=== PATIENT | female | born 2005 | race Caucasian/White ===

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

== ENCOUNTER 2023-02-24 10:28 | Outpatient (REF) | payer OTHER, SELFPAY | END 2023-02-24 10:29 | disposition home or self-care (01) | LOC: LBN 10:28 | PROVIDERS: PCP Nurse Practitioner Family; Visit Provider Nurse Practitioner Family | DX: J02.9 Acute pharyngitis, unspecified (principal) | CPT/HCPCS: 87070 ==

== ENCOUNTER → 2023-05-20 00:32 | Outpatient (CLI) | payer OTHER, SELFPAY ==
--- NOTE | 2023-05-20 08:15 | DI.RAD_ITS ---
Exam(s) XR LUMBAR SPINE COMPLETE EXAM: XR LUMBAR SPINE COMPLETE CLINICAL HISTORY: low back pain,M54.50. TECHNIQUE: 2D digital imaging was performed. Five views. COMPARISON: No exams were available for comparison FINDINGS: BONES: No fracture or destructive lesion. Vertebral body heights are maintained. No facet hypertroph y identified. Partial sacralization of the left L5 transverse process. DISKS: Intervertebral disc spaces are maintained. ALIGNMENT: Lumbar spinal alignment is within normal limits. SOFT TISSUE: Normal. IMPRESSION: No acute abnormality. DATA REPOSITORY: RADIATION DOSE DELIVERED:
== END ==
PROVIDERS: PCP Nurse Practitioner Family; Visit Provider Nurse Practitioner Family
DX: M54.50 Low back pain, unspecified
CPT/HCPCS: 72110

== ENCOUNTER 2023-09-03 22:21 | Emergency (ER) | payer OTHER, SELFPAY ==
[2023-09-03 22:38] VITALS: BP 154/83; PULSE 77; RESP 18; TEMP 36.4; O2SAT 98
--- NOTE | 2023-09-03 23:27 | ED.GENADUL_ITS ---
Discharge Plan Disposition Patient Disposition: Home Condition: Good Discharge Details Clinical Impression: Lumbago Primary Care Provider: Jhoana Manuel ED Provider: Eze Spear Home Meds and New Rx's Prescriptions: New cyclobenzaprine 10 mg tablet 10 mg PO TID Qty: 14 0RF prednisone 50 mg tablet 50 mg PO DAILY Qty: 5 0RF lidocaine [Lidoderm] 5 % adhesive patch,medicated 1 patch Topical Q24H Qty: 15 0RF No Action norethindrone-e.estradiol-iron [ 1.5/30 (28)] 1.5 mg-30 mcg (21)/75 mg (7) tablet 1 tab PO DAILY Qty: 84 4RF Rx Instructions: Take active pills continuously with no breaks venlafaxine 75 mg capsule,extended release 24hr 75 mg PO DAILY Qty: 90 0RF Discharge Instructions Instructions: Low Back Strain (ED) Additional Instructions: At this time your signs and symptoms are clinically consistent with a back sprain. This can cause significant pain and take a fair bit of time to heal. I expect 1 to 2 months for potential resolution. Please follow-up closely for your MRI. In the meantime do not lift anything greater than 5 pounds for the next 2 weeks. Avoid any significant vigorous physical activity. Perform easy gentle regular activities at home without any significant bending or lifting. Please take the steroids as directed. You have been given a prescription for Lidoderm patch. If your insurance does not cover this you can get [id number] Lidoderm patches at 4% which are almost just as effective. Please take the Flexeril as directed but do not take it when driving or operating any vehicles or heavy machinery, swimming, taking long baths, or operating firearms. Please use a heating pad as often as possible on your back. Perform daily gentle stretches on your back. Please continue to take the Tylenol and Motrin. You can take 1000 mg of Tylenol every 6 hours and 600 mg of ibuprofen every 6 hours. If you notice any worsening of your symptoms, or any new symptoms such as vomiting, diarrhea, fever, chills, shortness of breath, chest pain, numbness or tingling in your groin or legs, weakness in your legs, loss of control for your bowels or bladder, or fainting , please return immediately to the emergency department for reevaluation. Please follow up with your primary care provider as soon as possible for reassessment and reevaluation. As always, it was a pleasure participating in your medical care today. Referrals: Jhoana Manuel NP [Primary Care Provider] - [facility] General Date/Time Provider Initiated Documentation: 09/03/23 22:41 . HPI Narrative: 18-year-old female with past medical history of chronic back pain, presents today for evaluation of back pain. Patient has been seen and assessed in the past for her low back pain. X-rays in the past demonstrate no acute abnormality about 3 months ago on assessment. She is getting physical therapy, and has a referral for injections, pain management, and an outpatient MRI upcoming. Pain returned again tonight. Is been mildly achy over the last 2 to 3 days, however tonight at around 5 PM and got notably worse when she tried to lay down. She describes it as in the left lower back, radiates to the buttock and down the leg. It is present on the lateral and anterior aspect of the leg. She describes a tingling burning sensation that goes down the leg. No weakness. Patient denies any saddle anesthesia, numbness or tingling in the groin, change in sensation when wiping. Patient denies any change in sensation during sexual intercourse, bowel or bladder incontinence, leakage, or retention. Patient denies any weakness in the lower extremities, atypical falls or imbalance. She denies any other complaints. No other modifying factors. She has taken cyclobenzaprine in the past without significant improvement. She did take NSAIDs earlier this evening without significant improvement. Related Data Home Medications Medication Instructions Recorded Confirmed norethindrone 1.5 mg-ethinyl 1 tab PO DAILY #84 tabs 08/26/22 09/03/23 estradiol 30 mcg(21)/iron 75 mg(7) tablet ( FE 1.5/30 (28)) venlafaxine 75 mg capsule,extended 75 mg PO DAILY #90 caps 08/08/23 09/03/23 release 24 hr cyclobenzaprine 10 mg tablet 10 mg PO TID #14 tabs 09/03/23 lidocaine 5 % topical patch 1 patch topical Q24H #15 ea 09/03/23 (Lidoderm) prednisone 50 mg tablet 50 mg PO DAILY #5 tabs 09/03/23 Previous Rx's Medication Instructions Recorded norethindrone 1.5 mg-ethinyl 1 tab PO DAILY #84 tabs 08/26/22 estradiol 30 mcg(21)/iron 75 mg(7) tablet ( FE 1.5 (28)) venlafaxine 75 mg capsule,extended 75 mg PO DAILY #90 caps 08/08/23 release 24 hr cyclobenzaprine 10 mg tablet 10 mg PO TID #14 tabs 09/03/23 lidocaine 5 % topical patch 1 patch topical Q24H #15 ea 09/03/23 (Lidoderm) prednisone 50 mg tablet 50 mg PO DAILY #5 tabs 09/03/23 Allergies Allergy/AdvReac Type Severity Reaction Status Date / Time No Known Allergies Allergy Verified 08/08/23 14:31 General Stated Complaint: Nk/Back Pain ANUP: 4 Review of Systems All systems reviewed & are unremarkable except as noted in HPI and below Exam Narrative Exam Narrative: 1.Const: Well-nourished, Well-developed, appearing stated age 2.Eyes: PERRL, no conjunctival injection, and symmetrical lids. 3.ENT: Atraumatic external nose and ears. Moist MM. Neck: Symmetric, trachea midline, No thyromegaly. 4.CVS: +S1/S2, No murmurs or gallops. Peripheral pulses 2+ and equal in all extremities. Brisk capillary refill in all extremities. 5.RESP: Unlabored respiratory effort. Clear to auscultation bilaterally. No wheezes rales or rhonchi 6.GI: Soft, Nontender/Nondistended, No hepatosplenomegaly. No guarding or rebound. 7.MSK: Normocephalic/Atraumatic, Extremities w/o deformity or ttp No cyanosis or clubbing, Normal movement of all extremities No midline tenderness to palpation over the CTLS spine. Normal ROM in flexion, extension, side bend, and rotation. Patient has +5 out of 5 strength in the lower extremities in dorsiflexion and plantarflexion, knee flexion and extension, hip flexion and extension. Normal strength for dorsiflexion and plantar flexion of the great toe bilaterally. There is +2 over 2 dorsalis pedis pulses bilaterally. There is normal sensation to the skin with light touch at the foot, knee, and hip. Normal saddle sensation. Good sensation over the deep sural nerve area bilaterally. Rectal exam demonstrates good rectal tone with excellent angela-rectal sensation. Reflexes are +2 over 4 in the patellar reflex bilaterally. +5 out of 5 strength in the medial, ulnar, radial nerve distribution bilaterally in the hands as well as intact light touch sensation to these dermatomes on the hands. Patient does have mild left-sided paraspinal spasm and some tenderness in the lower lumbar and SI joint area. No other abnormality otherwise. 8.Skin: Warm, Dry. No rashes or lesions. 9.Neuro: lapel padder blindstitch II-XII grossly intact. Sensation grossly intact, no focal neurologic deficits. 10.Psych: (AAO) x3. Appropriate mood and affect Course Vital Signs Vital signs: Vital Signs Temperature 36.4 C 09/03/23 22:38 Pulse 77 09/03/23 22:38 Respiratory Rate 18 09/03/23 22:38 Blood Pressure 154/83 H 09/03/23 22:38 Pulse Oximetry 98 09/03/23 22:38 Temperature 36.4 C 09/03/23 22:38 Temperature Source Skin 09/03/23 22:38 Pulse 77 09/03/23 22:38 Respiratory Rate 18 09/03/23 22:38 Blood Pressure 154/83 H 09/03/23 22:38 Blood Pressure Position Sitting 09/03/23 22:38 Pulse Oximetry 98 09/03/23 22:38 Oxygen Delivery Method Room Air 09/03/23 22:38 Oxygen Flow Rate 0 09/03/23 22:38 Pain Level 9 09/03/23 22:38 Medical Decision Making 18-year-old female with past medical history of chronic back pain, presents today for evaluation of back pain. Patient has been seen and assessed in the past for her low back pain. X-rays in the past demonstrate no acute abnormality about 3 months ago on assessment. She is getting physical therapy, and has a referral for injections, pain management, and an outpatient MRI upcoming. Pain returned again tonight. Is been mildly achy over the last 2 to 3 days, however tonight at around 5 PM and got notably worse when she tried to lay down. She describes it as in the left lower back, radiates to the buttock and down the leg. It is present on the lateral and anterior aspect of the leg. She describes a tingling burning sensation that goes down the leg. No weakness. Patient denies any saddle anesthesia, numbness or tingling in the groin, change in sensation when wiping. Patient denies any change in sensation during sexual intercourse, bowel or bladder incontinence, leakage, or retention. Patient denies any weakness in the lower extremities, atypical falls or imbalance. She denies any other complaints. No other modifying factors. She has taken cyclobenzaprine in the past without significant improvement. She did take NSAIDs earlier this evening without significant improvement. Physical exam demonstrates notable left-sided paraspinal spasm. No midline tenderness. Mild achiness over the SI joint. Good rectal tone, normal strength. Normal movement. Symptoms appear clinically inconsistent with cauda equina syndrome, spinal epidural abscess, or other acute life-threatening antionette ology. Suspect mild SI joint irritation, potential sciatica from piriformis spasm onto the femoral nerve, and potential mild radiculopathy. Will give NSAIDs, Toradol, Lidoderm patch, Valium, and monitor closely and reassess. Will hold off on additional radiation exposure and CT imaging at this time. 11 PM Unfortunately when the patient got her IM injections she got very lightheaded and had a vagal event. She then later brought up that she has done poorly in the past with needles for piercings. After an initial vagal episode, patient's blood pressure and heart rate normalized and she felt much better. Will continue to monitor closely. Symptoms inconsistent with dissection. 12 AM On reassessment patient feels notably improved. Her episode from the vasovagal event from the IM injection is completely resolved and she feels well. She no longer has any vital sign abnormalities. The patient's back pain has improved. She feels comfortable going home. We will recommend cyclobenzaprine, Tylenol, Motrin, Lidoderm patch and heating pad for home. Patient's urinalysis shows no evidence to suggest UTI or pyelonephritis. Patient stable for discharge. Discussed red flags for which to return. I have extensively reviewed the treatment plan and discharge instructions with the patient and their family. I have addressed all patient concerns at this time. The patient and family was made aware of what symptoms to monitor for that would warrant a return to the emergency department. Discussed the plan with the patient and family, they demonstrate verbal understanding and agreement with our assessment and plan at this time. The documentation in this chart was dictated using [employer] dictation software. Please excuse any dictation errors. 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 Father No problems noted. Sister No problems noted. Sister No problems noted. Brother No problems noted. Maternal Grandfather Diabetes Heart disease Maternal Grandmother Breast cancer with recurrence at age 73 Paternal Grandfather No problems noted. Paternal Grandmother Depression Social History Smoking/Tobacco Use Status: Never Second Hand Exposure: Yes Smoking risk assessment performed?: Yes Alcohol Intake: current Alcohol Intake frequency: a few times a week Alcohol type: beer, wine and hard liquor Drug use: Never Substance use type: does not use Adopted: No Caregiver/Support person: No Foster care: No Household members: significant other Housing: apartment Communication Needs: None Do you need help understanding health information?: Never current occupation: working at [employer] Pets and animals: Yes Pets and animals: cat(s) and fish Sexually active: Yes Do you think of yourself as: straight/heterosexual Current gender identity: female What is your relationship status?: living with partner How often do you talk on the phone with friends or family?: twice per week How often do you get together with friends or relatives?: once per week How often do you attend religion or anglican services?: 1-3 times per year Do you belong to any clubs or organized social groups?: no Panel score (0-1 are the most socially isolated patients): 2 What type of physical activity do you participate in: swimming and other Details: Swim, softball, soccer, dance, ski,skate Duration: 60-90 minutes/day Frequency: 1-2 times per week Rosa Maria/Moravian: No preference Special rosa maria needs: No Seatbelt use: always Helmet use: Yes Drive intox or ride w/intox certified driver examiner: No Water heater temp set <120 deg: Yes Fire extinguisher in home: Yes Carbon monox detector in home: Yes Firearms in home: Yes Firearms unloaded and locked: Yes History History 0 Para Hx # Term Pregnancies Multiple births Hx # Pregnancies Ectopic pregnancies AB induced Hx Number of Living Children AB spontaneous
[2023-09-03] MEDS: Ketorolac 30 MG/ML VIAL IM (23:28)
[2023-09-03] MEDS: diazePAM 10 MG/2 ML SYR 5 MG IM (23:29)
[2023-09-03] MEDS: Acetaminophen 500 MG TAB 1000 MG PO (23:29)
[2023-09-03] MEDS: Lidocaine 5% Patch 1 PATCH TP (23:29)
[2023-09-03] MEDS: methylPREDNISolone SUCC 125 MG VIAL IVP (23:29)
[2023-09-03 23:31] LABS: Bilirubin Negative (Negative); Blood Trace-lysed (Negative); Clarity Clear (Clear); Glucose Negative (Negative); Ketones Negative (Negative); Leukocyte Esterase Trace (Negative); Nitrite Negative (Negative); Urobilinogen 0.2 mg/dL (Up to 0.2)
[2023-09-03 23:38] LABS: Bacteria Negative HPF (Negative); C & S Indicated? No; Crystals Negative HPF (Negative); Epithelial Cells Rare HPF (Negative); Mucus Negative (Negative); RBC 0-2 HPF (0-2); WBC 0-2 HPF (0-5)
[2023-09-04 00:05] VITALS: BP 125/69; PULSE 86; RESP 16; O2SAT 98
== END 2023-09-04 00:06 | disposition home or self-care (01) ==
LOC: ER 09-04 00:29
PROVIDERS: Emergency Provider Student in an Organized Health Care Education/Training Program; PCP Nurse Practitioner Family
DX: M54.50 Low back pain, unspecified (principal)
CPT/HCPCS: 96372; 96374; 99284; 81003; 81015; J1885; J2930; J3360

== ENCOUNTER → 2023-09-10 02:30 | Outpatient (CLI) | payer OTHER, SELFPAY ==
--- NOTE | 2023-09-10 08:30 | DI.MRI_ITS ---
Exam(s) MR LUMBAR SPINE WO EXAM: MR LUMBAR SPINE WO CLINICAL HISTORY: lumbar back pain,m54.50,m54.16, radiculopathy lumbar region. TECHNIQUE: Multiplanar multisequence MRI of the Lumbar spine was performed. COMPARISON: CR XR LUMBAR SPINE COMPLETE from 05/20/2023 FINDINGS: Bones: The last intervertebral disc space is designated the L5/S1 level for the numbering purpose of this ex amination. The vertebral body heights are well maintained. Alignment: Mild scoliosis. The marrow signal characteristics are unremarkable. Cord: The conus tip ends at the T12 level. It is of normal size and signal intensity. T12-L1: No focal disc herniation is present. No central spinal canal stenosis.No neural foraminal st enosis. L1-2: No focal disc herniation is present. No central spinal canal stenosis.No neural foraminal sten osis. L2-3: No focal disc herniation is present. No central spinal canal stenosis.No neural foraminal yaniv nosis. L3-4: No focal disc herniation is present. No central spinal canal stenosis.No neural foraminal yaniv nosis. L4-5: No focal disc herniation is present. No central spinal canal stenosis.No neural foraminal sten osis. L5-S1: No focal disc herniation is present. No central spinal canal stenosis.No neural foraminal st enosis. Partial sacralization of the left L5 transverse process. The visualized SI joints and sacrum are unremarkable. Soft tissues: The paraspinal soft tissues are unremarkable. IMPRESSION: No evidence of disc herniation, spinal stenosis or neuroforaminal narrowing. DATA REPOSITORY:
== END ==
PROVIDERS: PCP Nurse Practitioner Family; Visit Provider Nurse Practitioner Family
DX: M54.50 Low back pain, unspecified (principal); G89.29 Other chronic pain; M54.16 Radiculopathy, lumbar region
CPT/HCPCS: 72148

== ENCOUNTER 2023-11-17 05:05 | Outpatient (CLI) | payer OTHER, SELFPAY ==
--- NOTE | 2023-11-17 11:18 | TELEFU_ITS ---
Date of service: 11/17/23 Time of Service: 10:50 Nutrition Note NOTE: Spoke with Lisa via phone call per her request due to traveling/scheduling issues. She was at work (daycare services) and it was many times too noisy in the background to hear her. Lisa states she recently lost 10-12 pounds by adding more fruits and veggies, eating less and watching portions. She has healthier snacks throughout the day. Her weight loss efforts have stalled and she grows frustrated. She was referred for help with wt mgt and support for continued weight loss. She reports no food allergies and considers herself a 5 on 1-10 scale of picky eating (1 being most picky) - she won't eat peppers and onions, no beans or legumes, will not eat tomatoes or any seafood. She takes a gummy MVI for supplement. Diet recall: coffee with creamer and a yogurt with fruit and granola in themorni ng, salad with chicken for lunch, fruit for aftgernoon snack and dinner with the family is usually meat, starch/veggie. 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 REviewed with her potential barriers to weight loss: reviewed diet eli looks low in fiber and veggies. Reviewed she reports more grazing style of eating, although healthier choices. Recommended goal of hitting minimum of 25 grams of fiber from whole foods per day and setting an eating schedule that allows for 3 meals and at most 2 small PLANNED SNACKS that contain protein and a veggie. REcommended strength training 3 times per week to start but important to get into some scheduled exercise because much of the tiredness she experiences sounds like mental fatigue from the day. Encouraged goal of 1800kcals and 30% of this from protein - 135g per day split over meals and snacks. Pt knows my contact info should she have more needs for resources or follow up Time Spent in Nutritional Counseling and Treatment: 30 minutes
== END 2023-11-17 05:06 | disposition home or self-care (01) ==
PROVIDERS: PCP Nurse Practitioner Family; Visit Provider Dietitian, Registered
DX: E66.8 Other obesity (principal); Z71.3 Dietary counseling and surveillance
CPT/HCPCS: 00123; 97802

== ENCOUNTER 2024-01-21 03:27 | Outpatient (CLI) | payer OTHER, SELFPAY ==
[2024-01-21 08:39] LABS: Anion Gap 9.3 mmol/L (3-11); BUN 8 mg/dL (7-18); CO2 27.7 mmol/L (21.0-32.0); CREATININE 0.6 mg/dL (0.55-1.02); Calcium 9.3 mg/dL (8.5-10.1); Calculated LDL 89 mg/dL (<100); Chloride 106 mmol/L (98-107); Cholesterol 158 mg/dL (<200); Glucose 89 mg/dL (74-106); HDL Cholesterol 44 mg/dL (40-60); Sodium 143 mmol/L (136-145); Triglyceride 129 mg/dL (<150)
[2024-01-21 08:54] LABS: Hemoglobin A1C 4.9 % (<5.7)
== END 2024-01-21 03:28 | disposition home or self-care (01) ==
PROVIDERS: PCP Nurse Practitioner Family; Visit Provider Nurse Practitioner Family
DX: Z00.00 Encounter for general adult medical examination without abnormal findings (principal)
CPT/HCPCS: 36415; 80048; 80061; 83036

== ENCOUNTER 2024-03-04 14:00 | Outpatient (REF) | payer OTHER, SELFPAY ==
[2024-03-04 21:36] LABS: Bilirubin Negative (Negative); Blood Large (Negative); Clarity Clear (Clear); Glucose Negative (Negative); Ketones Negative (Negative); Leukocyte Esterase Small (Negative); Nitrite Negative (Negative); Urobilinogen 0.2 mg/dL (Up to 0.2)
[2024-03-04 21:49] LABS: Bacteria Few HPF (Negative); C & S Indicated? Yes; Casts Negative LPF (Negative); Crystals Negative HPF (Negative); Epithelial Cells Few HPF (Negative); Mucus Negative (Negative); WBC 20-50 HPF (0-5)
== END 2024-03-04 14:01 | disposition home or self-care (01) ==
LOC: LBN 14:00
PROVIDERS: PCP Nurse Practitioner Family; Visit Provider Physician Assistant
DX: R30.0 Dysuria (principal)
CPT/HCPCS: 87077; 81003; 81015; 87086; 87186

== ENCOUNTER 2024-05-11 11:36 | Outpatient (REF) | payer OTHER, SELFPAY | END 2024-05-11 11:37 | disposition home or self-care (01) | LOC: LBN 11:36 | PROVIDERS: PCP Nurse Practitioner Family; Visit Provider Nurse Practitioner Family | DX: J02.9 Acute pharyngitis, unspecified (principal); R68.89 Other general symptoms and signs; J06.9 Acute upper respiratory infection, unspecified | CPT/HCPCS: 87070 ==

== ENCOUNTER 2025-02-04 10:25 | Emergency (ER) | payer OTHER, SELFPAY ==
[2025-02-04] VITALS (31 sets, daily range): BP systolic 113–137; BP diastolic 60–86; PULSE 75–93; RESP 16; TEMP 37.3; O2SAT 97–100
--- NOTE | 2025-02-04 10:45 | DI.CT_ITS ---
Exam(s) CT ABDOMEN PELVIS W EXAM: CT ABDOMEN PELVIS W CLINICAL HISTORY: lower abd pain, cramping, gassiness. TECHNIQUE: Imaging Protocol: Axial computed tomography images with coronal and sagittal reformatted images were created and reviewed CONTRAST MATERIAL: Intravenous: Omnipaque-350 100cc Oral: None COMPARISON: No exams were available for comparison FINDINGS: VISUALIZED LUNG BASES: No nodules nor pleural effusions evident. ABDOMEN: There is some respiratory motion artifact. There is no ascites the upper abdomen. LIVER: There are no focal hepatic lesions evident. No dilated intrahepatic ducts. GALLBLADDER/BILIARY: No obvious gallbladder pathology. CBD is not dilated. PANCREAS: No evidence of pancreatic mass nor dilatation of the pancreatic duct. SPLEEN: Spleen is not enlarged. No obvious intrasplenic lesions. Splenic and portal veins are patent. ADRENALS: There are no significant adrenal masses. KIDNEYS:No cysts evident. No solid renal masses. No calculi nor hydronephrosis.. ABDOMINAL AORTA: Abdominal aorta is not enlarged. LYMPH NODES:There is no retroperitoneal nor paraaortic adenopathy. ABDOMINAL WALL: No evidence of significant anterior abdominal wall nor inguinal hernia. GI: There is no evidence of bowel obstruction, free air, nor abscess. PELVIS: GI: No evidence of obvious appendicitis.No evidence of sigmoid diverticulitis. LYMPH NODES: There is no intrapelvic nor inguinal adenopathy. REPRODUCTIVE: Uterus size is age-appropriate. Right ovary appears unremarkable. There left ovary is slightly prominent and there is a peripherally enhancing left ovarian cyst measuring approximately 3 by 1.8 by 2.6 cm, probably corpus luteal. There are no extraovarian adnexal masses. There is a moderate amount of free fluid in the cul-de-sac. URINARY BLADDER: No calculi nor obvious masses evident OSSEOUS: No fractures and no significant osseous lesions. There is partial sacralization of the L5 segment of lumbar spine on the left side. IMPRESSION: 1. There is a 3.0 by 1.8 x 2.6 cm probable corpus luteal cyst in left ovary. There is a moderate amount of fluid in the cul-de-sac. No significant abnormal right adnexal findings and no significant findings in the uterus. 2. No evidence of obvious appendicitis nor diverticulitis. Report called by myself to ER provider 02/04/2025 at 1: 10 p.m. RADIATION DOSE DELIVERED: 413.41mGy.cm Total DLP DATA REPOSITORY: All CT scans at this facility are submitted to the National Radiology Data Registry (NRDR) Dose Index Registry (DIR) with the [employer] (ACR). RADIATION OPTIMIZATION: All CT scans at this facility use at least one of these dose optimization techniques: automated exposure control; mA and/or kV adjustment per patient size (includes targeted exams where dose is matched to clinical indication); or iterative reconstruction.
--- NOTE | 2025-02-04 10:56 | ED.GENADUL_ITS ---
Discharge Plan Disposition Patient Disposition: Home Condition: Good Discharge Details Clinical Impression: Ovarian cyst Primary Care Provider: Jhoana Manuel ED Provider: Mari Fam Home Meds and New Rx's Prescriptions: No Action albuterol sulfate 90 mcg/actuation HFA aerosol inhaler 2 puff inhalation Q6H PRN (Reason: shortness of breath or wheezing) Qty: 6.7 0RF Discharge Instructions Instructions: Ovarian Cyst ED Additional Instructions: Please call [facility] to schedule follow-up appointment for management/evaluation of your ovarian cyst. Recommend that you continue to use Tylenol/ibuprofen and heating pads for discomfort. Rest as needed. Return to emergency care you develop new severe abdominal pain, uncontrollable vomiting, fevers associated with belly pain, or if you are very worried and need to be rechecked again immediately Referrals: [facility] [place] HPI General Date/Time Provider Initiated Documentation: 02/04/25 10:33 . HPI Narrative: Lisa is a 19-year-old female who presents to the emergency department today for evaluation of lower abdominal pain, gas, and bloating for a few days. Initially thought it was premenstrual cramps. Yesterday, nausea and increased bloating disrupted sleep, and pain to lower abdomen has become significantly worse. Denies associated fever/chills, recent illness, heartburn, chest pain, dyspnea, shortness of breath, vomiting, dysuria, blood in stools, unusual vaginal discharge. Last BM a couple days ago, says it has not unusual for her to be constipated. Has had anorexia due to abdominal pain. Menstrual cycles are irregular since stopping control year ago; she is sexually active, denies new partners. Has used Midol, Gas-X, laxatives, and Advil without relief of symptoms. Denies history of abdominal surgery. 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 Related Data Home Medications ?Medication ?Instructions ?Recorded ?Confirmed albuterol sulfate 90 mcg/actuation 2 puff inhalation Q 6H PRN 08/09/24 02/04/25 aerosol inhaler shortness of breath or wheez ing Held on 02/04/25. #6.7 grams Instructions: Pt Stopped/Never Started Previous Rx's ?Medication ?Instructions ?Recorded albuterol sulfate 90 mcg/actuation 2 puff inhalation Q 6H PRN 08/09/24 aerosol inhaler shortness of breath or wheez ing Held on 02/04/25. #6.7 grams Instructions: Pt Stopped/Never Started Allergies Allergy/AdvReac Type Severity Reaction Status Date / Time No Known Allergies Allergy Verified 02/04/25 10:42 General Stated Complaint: Abd Prob ANUP: 3 Exam Narrative Exam Narrative: General Appearance: Normal. Patient is tearful during exam, appears anxious. Vital signs: Within normal limits. HEENT: Oropharynx clear, no erythema or exudates. Moist mucous membranes. Cardiac: Heart sounds, regular rate and rhythm. Respiratory: Easy work of breathing, lungs clear bilaterally. Gastrointestinal: Abdomen soft, tender to palpation in lower abdomen. No rebound tenderness or guarding; negative psoas sign. No CVA tenderness. Skin: Warm and dry, no rash. Psychiatric: Normal. Course Vital Signs Vital signs: Vital Signs Temperature 37.3 C 02/04/25 10:31 Pulse 77 02/04/25 10:31 Respiratory Rate 16 02/04/25 10:31 Blood Pressure 137/76 02/04/25 10:31 Temperature 37.3 C 02/04/25 10:40 Temperature Source Oral 02/04/25 10:40 Pulse 84 02/04/25 10:40 Respiratory Rate 16 02/04/25 10:31 Blood Pressure 137/76 02/04/25 10:31 Blood Pressure Position Supine 02/04/25 10:31 Pulse Oximetry 99 02/04/25 10:40 Oxygen Delivery Method Room Air 02/04/25 10:40 Oxygen Flow Rate 0 02/04/25 10:31 Pain Level 8 02/04/25 10:31 Medical Decision Making Initial Assessment: 19-year-old female with lower abdominal pain, nausea, and bloating for a few days, worsening since yesterday. No relief from Midol, Gas-X, laxatives, or Advil. No history of abdominal surgeries, fever, chills, or recent illness. Occasional constipation. Negative test at urgent care today. Differential Diagnosis includes but is not limited to: Appendicitis, gastroenteritis, diverticulitis/colitis, UTI, ovarian cyst ED Course: - Blood work ordered. - IV Toradol administered for pain and Anti-nausea medication administered; patient was able to take p.o. denisse ramos and crackers without difficulty, reported some improvement in discomfort. I independently interpreted the following tests: CBC, CMP, lipase, and magnesium all unremarkable. CT abdomen/pelvis performed, significant for 3 x 1.8 x 2.6 cm left ovarian cyst with a moderate amount of free fluid in the cul-de-sac. I received a call from Dr. Kemp, radiologist. Clinical Impression: - Lower abdominal pain, likely related to left ovarian cyst Disposition: - Discharge home. Reviewed discharge instructions, including symptomatic management, follow-up with [facility], and red flags indicating need to return to emergency care. Return if worsening pain, fever, or inability to tolerate oral intake. - Follow-Up: Referral made to [facility]. Primary care physician as needed Patient Education: Discussed return precautions, importance of follow-up with primary care physician. MDM Components Evaluation: - Number of Differential Diagnoses or Management Options: Dysmenorrhea, Gastrointestinal issues, Urinary tract infection. - Amount and Complexity of Data Reviewed: Blood work ordered. - Risk of Complication and Morbidity or Mortality: Moderate risk due to persistent pain and nausea, potential for underlying infection or gastrointestinal issue. Patient consented to the use of [facility] Imaging Data Radiologic Study: Radiologist's impression: Exam(s) CT ABDOMEN PELVIS W EXAM: CT ABDOMEN PELVIS W CLINICAL HISTORY: lower abd pain, cramping, gassiness. TECHNIQUE: Imaging Protocol: Axial computed tomography images with coronal and sagittal reformatted images were created and reviewed CONTRAST MATERIAL: Intravenous: Omnipaque-350 100cc Oral: None COMPARISON: No exams were available for comparison FINDINGS: VISUALIZED LUNG BASES: No nodules nor pleural effusions evident. ABDOMEN: There is some respiratory motion artifact. There is no ascites the upper abdomen. LIVER: There are no focal hepatic lesions evident. No dilated intrahepatic ducts. GALLBLADDER/BILIARY: No obvious gallbladder pathology. CBD is not dilated. PANCREAS: No evidence of pancreatic mass nor dilatation of the pancreatic duct. SPLEEN: Spleen is not enlarged. No obvious intrasplenic lesions. Splenic and portal veins are patent. ADRENALS: There are no significant adrenal masses. KIDNEYS:No cysts evident. No solid renal masses. No calculi nor hydronephrosis.. ABDOMINAL AORTA: Abdominal aorta is not enlarged. LYMPH NODES:There is no retroperitoneal nor paraaortic adenopathy. ABDOMINAL WALL: No evidence of significant anterior abdominal wall nor inguinal hernia. GI: There is no evidence of bowel obstruction, free air, nor abscess. PELVIS: GI: No evidence of obvious appendicitis.No evidence of sigmoid diverticulitis. LYMPH NODES: There is no intrapelvic nor inguinal adenopathy. REPRODUCTIVE: Uterus size is age-appropriate. Right ovary appears unremarkable. There left ovary is slightly prominent and there is a peripherally enhancing left ovarian cyst measuring approximately 3 by 1.8 by 2.6 cm, probably corpus luteal. There are no extraovarian adnexal masses. There is a moderate amount of free fluid in the cul-de-sac. URINARY BLADDER: No calculi nor obvious masses evident OSSEOUS: No fractures and no significant osseous lesions. There is partial sacralization of the L5 segment of lumbar spine on the left side. IMPRESSION: 1. There is a 3.0 by 1.8 x 2.6 cm probable corpus luteal cyst in left ovary. There is a moderate amount of fluid in the cul-de-sac. No significant abnormal right adnexal findings and no significant findings in the uterus. 2. No evidence of obvious appendicitis nor diverticulitis. 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 Father Alcohol use disorder Sister Depression Sister No problems noted. Brother No problems noted. Maternal Grandfather Diabetes Heart disease Maternal Grandmother Breast cancer with recurrence at age 73 Paternal Grandfather No problems noted. Paternal Grandmother Depression Social History Smoking/Tobacco Use Status: Never Second Hand Exposure: Yes Smoking risk assessment performed?: Yes Alcohol Intake: current Alcohol Intake frequency: a few times a month Alcohol type: beer Drug use: Never Substance use type: does not use, former substance user and marijuana Adopted: No Caregiver/Support person: No Foster care: No Household members: significant other Housing: house Communication Needs: None Education Level: college Details: Some Do you need help understanding health information?: Never current occupation: working at [employer] Pets and animals: Yes Pets and animals: cat(s) and fish Sexually active: Yes Do you think of yourself as: straight/heterosexual Current gender identity: female What is your relationship status?: living with partner How often do you talk on the phone with friends or family?: once per week How often do you get together with friends or relatives?: once per week How often do you attend samaritan or synagogue services?: 1-3 times per year Do you belong to any clubs or organized social groups?: no Panel score (0-1 are the most socially isolated patients): 1 What type of physical activity do you participate in: walking, swimming and other Details: Core Duration: 15-30 minutes/day Frequency: 3-4 times per week Rosa Maria/Worship: No preference Special rosa maria needs: No Seatbelt use: always Helmet use: Yes Drive intox or ride w/intox driver material handler: No Water heater temp set <120 deg: Yes Fire extinguisher in home: Yes Carbon monox detector in home: Yes Firearms in home: Yes Firearms unloaded and locked: Yes Do you feel safe at home: Yes Do you feel safe in your relationship?: Yes Victim of physical abuse: No Victim of emotional abuse: No Victim of sexual abuse: No Would you like helpful sources: No History History 0 Para Hx # Term Pregnancies Multiple births Hx # Pregnancies Ectopic pregnancies AB induced Hx Number of Living Children AB spontaneous
--- NOTE | 2025-02-04 11:14 | NUR.NOTE ---
This rn informed Ivy KELLEY that pt had U preg prior to arriving at ER at . Provider note from by Miley Quezada NP reports neg U preg. Per Mari mae to send to go to [place] and report neg U preg collected at . Nursing Note:
[2025-02-04 11:15] LABS: Abs Immature Grans 0.02 10^3/uL (0.0-0.06); HCT 40.0 % (36.0-46.0); HGB 13.6 g/dL (11.2-15.7); Immature Grans % 0.2 %; MCH 29.8 pg (27.0-33.0); MCHC 34.0 % (32.0-36.0); MCV 88 fL (80-95); MPV 11.0 fL (8.0-11.0); Platelet Count 229 10^3/uL (130-400); RBC 4.57 10^6/uL (3.93-5.22); RDW 11.8 % (11.7-14.6); RDW-SD 37.2 fL; WBC 9.21 10^3/uL (4.4-10.8)
[2025-02-04] MEDS: Ondansetron 4 MG/2 ML VIAL IVP (11:24)
[2025-02-04] MEDS: Ketorolac 15 MG/ML VIAL IVP (11:24)
[2025-02-04 11:34] LABS: ALT 23 U/L (14-59); AST 14 U/L (15-37); Albumin 4.3 g/dL (3.4-5.0); Alkaline Phosphatase 86 U/L (46-116); Anion Gap 7.4 mmol/L (3-11); BUN 5 mg/dL (7-18); Bilirubin, Total 0.7 mg/dL (0.2-1.0); CO2 29.6 mmol/L (21.0-32.0); Calcium 9.4 mg/dL (8.5-10.1); Chloride 103 mmol/L (98-107); Estimated GFR 130.88 (mL/min/1.73m2); Glucose 92 mg/dL (74-106); Lipase 18 U/L (<78); Magnesium 2.2 mg/dL (1.8-2.4); Potassium 4.0 mmol/L (3.5-5.1); Sodium 140 mmol/L (136-145); Total Protein 7.9 g/dL (6.4-8.2)
[2025-02-04] MEDS: Normal Saline - Diluent 50 ML VIAL IJ (12:12)
[2025-02-04] MEDS: Omnipaque 350 MG/ML 100 ML BTL IJ (12:14)
== END 2025-02-04 14:22 | disposition home or self-care (01) ==
PROVIDERS: Emergency Provider Nurse Practitioner Family; PCP Nurse Practitioner Family
DX: R10.32 Left lower quadrant pain (principal); R11.0 Nausea; N83.202 Unspecified ovarian cyst, left side
CPT/HCPCS: 80053; 81025; 83690; 96374; 96375; 99285; 74177; 83735; 85025; J1885; J2405; J3490

== ENCOUNTER 2025-02-14 11:43 | Outpatient (REF) | payer OTHER, SELFPAY ==
--- NOTE | 2025-02-14 11:30 | PAPFT_PTH ---
PATIENT: Lisa Turner LOC: [facility] U#:[id number] AGE/SX: 19/F ROOM: RE02/14/[address]: Taniya Green NP : 2005 BED: DIS: 02/14/2025 SPEC #: [id number] RECD: 02/14/25 13:13 STATUS: MADI HINDS #: [id number] BA: 02/14/25 11:[address]: Taniya Green NP DEPT: [facility] Cytology RECD BY: Carmela Richardson ENTERED: 02/14/25 13:14 SP TYPE: PAPFT OTHR DR: Jhoana Manuel, GLENIS Tissues: 1 - CX/ENDOCX FOR PAP SMEARS Procedures: PAP THIN PREP/UVM Screening Comments: [id number]
== END 2025-02-14 11:44 | disposition home or self-care (01) ==
LOC: LBN 11:43
PROVIDERS: PCP Nurse Practitioner Family; Visit Provider Nurse Practitioner Women's Health
DX: Z12.4 Encounter for screening for malignant neoplasm of cervix (principal)
CPT/HCPCS: 88142

== ENCOUNTER 2025-05-26 01:48 | Outpatient (CLI) | payer OTHER, SELFPAY ==
[2025-05-26 11:55] LABS: Abs Immature Grans 0.02 10^3/uL (0.0-0.06); HCT 34.6 % (36.0-46.0); HGB 12.3 g/dL (11.2-15.7); Immature Grans % 0.3 %; MCH 30.4 pg (27.0-33.0); MCHC 35.5 % (32.0-36.0); MCV 85 fL (80-95); MPV 10.3 fL (8.0-11.0); Platelet Count 214 10^3/uL (130-400); RBC 4.05 10^6/uL (3.93-5.22); RDW 11.6 % (11.7-14.6); RDW-SD 35.8 fL; WBC 6.29 10^3/uL (4.4-10.8)
[2025-05-26 17:31] LABS: Lab Add On Test DONE
[2025-05-26 17:52] LABS: TSH (W/Ref FT4) 2.29 uIU/mL (0.55-4.78)
[2025-05-27 11:23] LABS: HIV-1/2 Ag & Ab Screen Negative (Negative)
[2025-05-27 11:24] LABS: Hepatitis C Ab w Rflx HCV PCR Negative (Negative)
[2025-05-27 11:37] LABS: Rubella IgG Ab (UVM) Positive (See Note)
[2025-05-29 16:07] LABS: Syphilis IgG w/Reflex Nonreactive (Nonreactive)
== END 2025-05-26 01:49 | disposition home or self-care (01) ==
LOC: LBO 01:49
PROVIDERS: PCP Nurse Practitioner Family; Visit Provider Advanced Practice Midwife
DX: Z34.91 Encounter for supervision of normal pregnancy, unspecified, first trimester (principal); F33.9 Major depressive disorder, recurrent, unspecified
CPT/HCPCS: 36415; 81220; 81222; 81329; 86787; 86803; 86850; 86900; 86901; 87340; 87389; 84443; 85025; 86762; 86780

== ENCOUNTER 2025-05-26 11:27 | Outpatient (REF) | payer OTHER, SELFPAY | END 2025-05-26 11:28 | disposition home or self-care (01) | LOC: LBN 11:27 | PROVIDERS: PCP Nurse Practitioner Family; Visit Provider Advanced Practice Midwife | DX: Z34.91 Encounter for supervision of normal pregnancy, unspecified, first trimester (principal) | CPT/HCPCS: 87086 ==